=== PATIENT | male | born 1945 | race Caucasian/White ===

== ENCOUNTER → 2018-05-04 | Outpatient (REF) | payer MEDICARE, OTHER ==
[2018-05-04 13:33] LABS: GAMMA GLUTAMYLTRANSPEPTIDASE 139 U/L (15-85)
== END ==
LOC: M LAB REF 12:37
DX: R74.8 Abnormal levels of other serum enzymes (principal)
CPT/HCPCS: 82977

== ENCOUNTER → 2018-06-30 | Outpatient (REF) | payer MEDICARE, OTHER ==
[~2018-06-30] MED LIST: ACIP1TAB PO; ACTO45TA15 PO; ASPI81TA7 PO; CEFT500T PO; DIOV320T3 PO; FURO20TA2 PO; JANU100T PO; LIPI10TA PO; METO1TAB7 PO; OMEP20CA3 PO; PIOG1TAB37 PO; TOPR25TA PO; ULTR50TA PO; ZITH250T PO
[2018-07-06 11:15] LABS: HEPATITIS A ANTIBODY IGM NEGATIVE (NEGATIVE); HEPATITIS B CORE ANTIBODY IGM NEGATIVE (NEGATIVE); HEPATITIS B SURFACE ANTIGEN NEGATIVE (NEGATIVE); HEPATITIS C VIRUS ABY INDEX 0.1 INDEX (<0.8)
== END ==
LOC: M LAB REF 16:36
PROVIDERS: ATTEND Family Medicine
DX: R74.0 Nonspecific elevation of levels of transaminase and lactic acid dehydrogenase [LDH] (principal)

== ENCOUNTER → 2021-06-16 | Outpatient (CLI) | payer MEDICARE, OTHER ==
[~2021-06-16] MED LIST changes: +METO-1 PO; -TOPR25TA PO
== END ==
LOC: M WUC 12:59
PROVIDERS: ATTEND Family Medicine
DX: R06.2 Wheezing (principal)

== ENCOUNTER → 2021-11-12 | Outpatient (CLI) | payer MEDICARE, OTHER | LOC: M WHC 10:06 | PROVIDERS: ATTEND Family Medicine | DX: R60.0 Localized edema (principal); M71.21 Synovial cyst of popliteal space [Baker], right knee ==

== ENCOUNTER → 2022-07-08 | Outpatient (CLI) | payer MEDICARE, OTHER ==
[~2022-07-08] MED LIST changes: +ASPI81CH33 PO; +ATOR1TAB19 PO; +GLIP10TA18 PO; +INVO100T PO; +LOSA50TA28 PO; +TRUL0.5I SQ
== END ==
LOC: M LABSMTC 09:54
PROVIDERS: ATTEND Anesthesiology
DX: Z01.812 Encounter for preprocedural laboratory examination (principal); Z20.822 Contact with and (suspected) exposure to COVID-19

== ENCOUNTER 2022-07-13 11:23 | Day surgery (SDC) | payer MEDICARE, OTHER ==
[~2022-07-13] VITALS: Ht 170.2 cm; Wt 111.0 kg
[~2022-07-13 11:23] MED LIST changes: +NS 1,000 ML IV ONE
[2022-07-13] MEDS ORDERED: LIDOCAINE 2% 100MG/5ML SDV (FOR ANES.) As Ordered ONE (12:03)
[2022-07-13] MEDS ORDERED: propofoL 200 MG/20 ML VIAL As Ordered ONE (12:03)
[2022-07-13 13:45] VITALS: BP 164/76
== END 2022-07-13 13:52 | disposition home or self-care (01) ==
LOC: M OPP 11:23
PROVIDERS: ATTEND Internal Medicine Gastroenterology
DX: Z12.11 Encounter for screening for malignant neoplasm of colon (principal); Z86.010 Personal history of colon polyps; Z80.0 Family history of malignant neoplasm of digestive organs; D12.6 Benign neoplasm of colon, unspecified; K64.0 First degree hemorrhoids; K57.30 Diverticulosis of large intestine without perforation or abscess without bleeding; Z79.02 Long term (current) use of antithrombotics/antiplatelets; Z79.82 Long term (current) use of aspirin; Z79.84 Long term (current) use of oral hypoglycemic drugs; Z79.899 Other long term (current) drug therapy; Z88.4 Allergy status to anesthetic agent; I10 Essential (primary) hypertension; E11.9 Type 2 diabetes mellitus without complications; Z87.891 Personal history of nicotine dependence

== ENCOUNTER 2023-03-31 11:32 | Emergency (ER) | payer MEDICARE, OTHER ==
[~2023-03-31] VITALS: Ht 170.2 cm; Wt 109.8 kg
[~2023-03-31 11:32] MED LIST changes: -ELIQ5TAB4 PO
[2023-03-31] MEDS ORDERED: ELIQ5TAB4 PO (15:42)
[2023-03-31 15:55] VITALS: BP 164/81; TEMP 97.3; O2SAT 97
== END 2023-03-31 15:57 | disposition home or self-care (01) ==
LOC: M ED 11:32
DX: I82.441 Acute embolism and thrombosis of right tibial vein (principal); I44.0 Atrioventricular block, first degree; E11.9 Type 2 diabetes mellitus without complications; I10 Essential (primary) hypertension; K21.9 Gastro-esophageal reflux disease without esophagitis; M54.50 Low back pain, unspecified; K57.92 Diverticulitis of intestine, part unspecified, without perforation or abscess without bleeding; Z88.4 Allergy status to anesthetic agent; Z79.01 Long term (current) use of anticoagulants; Z79.82 Long term (current) use of aspirin; Z79.02 Long term (current) use of antithrombotics/antiplatelets; Z79.811 Long term (current) use of aromatase inhibitors; Z79.899 Other long term (current) drug therapy

== ENCOUNTER → 2023-03-31 | Outpatient (CLI) | payer MEDICARE, OTHER ==
[~2023-03-31] MED LIST changes: +ELIQ5TAB4 PO; -NS 1,000 ML IV ONE
== END ==
LOC: M WHC 08:36
PROVIDERS: ATTEND Physician Assistant
DX: R22.41 Localized swelling, mass and lump, right lower limb (principal)

== ENCOUNTER → 2023-06-24 | Outpatient (REF) | payer MEDICARE, OTHER ==
[~2023-06-24] MED LIST changes: +ELIQ5TAB4 PO
[2023-07-01 15:08] LABS: ANTI THROMBIN 3 FUNCT ACTIVITY 117 % (75-135); CARDIOLIPIN IGA ANTIBODY <9 APL U/mL (0-11); CARDIOLIPIN IGG ANTIBODY <9 GPL U/mL (0-14); CARDIOLIPIN IGM ANTIBODY 24 MPL U/mL (0-12); HOMOCYST(E)INE SERUM 19.6 umol/L (0.0-19.2); PROTEIN C FUNCTIONAL ACTIVITY 104 % (73-180); PROTEIN S FUNCTIONAL ACTIVITY 88 % (63-140)
[2023-07-02 11:03] LABS: DRVV SCREEN 74.8 SECONDS
[2023-07-02 11:24] LABS: PTT LUPUS TYPE ANTICOAG SCREEN 1.89 (0-1.20)
[2023-07-02 11:34] LABS: DRVV CONFIRM 59.8 SECONDS; LUPUS CONFIRM RATIO 1.6
[2023-07-02 11:43] LABS: NORMALIZED RATIO 1.18 (0.00-1.20)
== END ==
LOC: M LAB REF 12:24
PROVIDERS: ATTEND Family Medicine
DX: I82.403 Acute embolism and thrombosis of unspecified deep veins of lower extremity, bilateral (principal)

== ENCOUNTER → 2023-07-05 | Outpatient (CLI) | payer MEDICARE, OTHER | LOC: M CARPUL 09:12 | PROVIDERS: ATTEND Family Medicine | DX: R60.0 Localized edema (principal); I08.1 Rheumatic disorders of both mitral and tricuspid valves ==

== ENCOUNTER 2023-09-23 08:19 | Outpatient (RCR) | payer MEDICARE, OTHER | END 2023-09-26 | LOC: M PT 08:19 | PROVIDERS: ATTEND Nurse Practitioner Family | DX: R60.0 Localized edema (principal) ==

== ENCOUNTER 2023-10-01 08:17 | Outpatient (RCR) | payer MEDICARE, OTHER | END 2023-10-26 | LOC: M PT 08:17 | PROVIDERS: ATTEND Nurse Practitioner Family | DX: I89.0 Lymphedema, not elsewhere classified (principal) ==

== ENCOUNTER → 2023-12-21 | Outpatient (CLI) | payer MEDICARE, OTHER | LOC: M RAD 07:28 | PROVIDERS: ATTEND Family Medicine | DX: R74.01 Elevation of levels of liver transaminase levels (principal); K76.0 Fatty (change of) liver, not elsewhere classified; R93.2 Abnormal findings on diagnostic imaging of liver and biliary tract; R93.3 Abnormal findings on diagnostic imaging of other parts of digestive tract ==

== ENCOUNTER 2024-02-16 14:41 | Emergency (ER) | payer MEDICARE, OTHER ==
[~2024-02-16] VITALS: Ht 170.2 cm; Wt 113.4 kg
[~2024-02-16 14:41] MED LIST changes: -ACIP1TAB PO; +RABE20TA88 PO
[2024-02-16 15:31] LABS: BASO % 0.4 % (0.0-1.0); EOS # 0.2 10^3/uL (0.0-0.5); EOS % 1.5 % (0.0-3.0); HEMOGLOBIN 14.4 g/dl (13.5-17.5); LYMPH # 3.9 10^3/uL (1.5-5.0); LYMPH % 37.5 % (24.0-44.0); MEAN CORPUSCULAR HEMOGLOBIN 30.9 pg (27.0-33.0); MEAN CORPUSCULAR HGB CONC 33.5 g/dl (32.0-36.5); MEAN CORPUSCULAR VOLUME 92.3 fl (80.0-96.0); MONO # 0.8 10^3/uL (0.0-0.8); NEUTROPHILS # 5.4 10^3/uL (1.5-8.5); NEUTROPHILS % 52.3 % (36.0-66.0); PLATELET COUNT, AUTOMATED 170 10^3/uL (150-450); RED BLOOD COUNT 4.66 10^6/uL (4.30-6.10); WHITE BLOOD COUNT 10.3 10^3/uL (4.0-10.0)
[2024-02-16 15:32] LABS: INR 1.41; PARTIAL THROMBOPLASTIN TIME 38.4 SECONDS (24.8-34.2); PROTHROMBIN TIME 16.8 SECONDS (12.5-14.5)
[2024-02-16 15:38] LABS: CALCIUM LEVEL 9.4 MG/DL (8.3-10.6); CREATININE FOR GFR 1.89 MG/DL (0.70-1.30); GLOMERULAR FILTRATION RATE 36.8 (>42); MAGNESIUM LEVEL 2.4 MG/DL (1.8-2.4); POTASSIUM SERUM 4.6 MMOL/L (3.5-5.1)
[2024-02-16 15:40] LABS: THYROID STIMULATING HORMONE 2.883 uIU/ML (0.55-4.78)
[2024-02-16 16:09] VITALS: BP 128/57; TEMP 97.3
[2024-02-16 16:11] VITALS: O2SAT 96
== END 2024-02-16 16:15 | disposition left against medical advice (07) ==
LOC: M ED 14:41
DX: I49.2 Junctional premature depolarization (principal); E11.9 Type 2 diabetes mellitus without complications; I10 Essential (primary) hypertension; K21.9 Gastro-esophageal reflux disease without esophagitis; N18.9 Chronic kidney disease, unspecified; Z86.718 Personal history of other venous thrombosis and embolism; Z88.8 Allergy status to other drugs, medicaments and biological substances; Z79.01 Long term (current) use of anticoagulants; Z79.82 Long term (current) use of aspirin; Z79.899 Other long term (current) drug therapy; Z53.9 Procedure and treatment not carried out, unspecified reason

== ENCOUNTER 2024-04-05 10:27 | Outpatient (RCR) | payer MEDICARE, OTHER | END 2024-04-27 | LOC: M PT 10:27 | PROVIDERS: ATTEND Nurse Practitioner Family | DX: I89.0 Lymphedema, not elsewhere classified (principal) ==

== ENCOUNTER → 2024-04-24 | Outpatient (CLI) | payer MEDICARE, OTHER ==
[~2024-04-24] MED LIST changes: +ISOVUE-370 76% 100ML VIAL As Ordered ONE
== END ==
LOC: M RAD 08:13
PROVIDERS: ATTEND Family Medicine
DX: R74.01 Elevation of levels of liver transaminase levels (principal)
CPT/HCPCS: 74177; Q9967

== ENCOUNTER 2024-06-14 08:22 | Outpatient (RCR) | payer MEDICARE, OTHER ==
[~2024-06-14 08:22] MED LIST changes: -ISOVUE-370 76% 100ML VIAL As Ordered ONE
== END 2024-06-27 ==
LOC: M PT 08:22
PROVIDERS: ATTEND Nurse Practitioner Family
DX: I89.0 Lymphedema, not elsewhere classified (principal)

== ENCOUNTER 2024-08-07 16:38 | Emergency (ER) | payer MEDICARE, OTHER ==
[~2024-08-07] VITALS: Ht 170.2 cm; Wt 111.6 kg
[2024-08-07 16:44] VITALS: TEMP 97.3
[2024-08-07] MEDS: LIDOCAINE 5% (LIDODERM) PATCH TD ONE (20:05)
[2024-08-07] MEDS: KETOROLAC 30 MG/ML 1ML VIAL IM ONE (20:28)
[2024-08-07] MEDS ORDERED: PRED20TA PO (21:23)
[2024-08-07] MEDS ORDERED: METH-1164 PO (21:23)
[2024-08-07 21:38] VITALS: BP 190/80; O2SAT 98
== END 2024-08-07 21:46 | disposition home or self-care (01) ==
LOC: M ED 16:38
DX: M54.16 Radiculopathy, lumbar region (principal); E11.9 Type 2 diabetes mellitus without complications; I10 Essential (primary) hypertension; K21.9 Gastro-esophageal reflux disease without esophagitis; K57.30 Diverticulosis of large intestine without perforation or abscess without bleeding; Z88.0 Allergy status to penicillin; Z79.01 Long term (current) use of anticoagulants; Z79.82 Long term (current) use of aspirin; Z79.02 Long term (current) use of antithrombotics/antiplatelets; Z79.899 Other long term (current) drug therapy
CPT/HCPCS: 73502; 80047; 96372; 99283; J1100; J1885

== ENCOUNTER → 2024-08-11 | Outpatient (CLI) | payer MEDICARE, OTHER ==
[~2024-08-11] MED LIST changes: +METH-1164 PO; +PRED20TA PO; +PROHANCE 279.3MG/ML 15ML VIAL ONE; +PROHANCE 279.3MG/ML 5ML VIAL ONE
== END ==
LOC: M PLAIMG 12:28
PROVIDERS: ATTEND Family Medicine
DX: D37.6 Neoplasm of uncertain behavior of liver, gallbladder and bile ducts (principal); N28.1 Cyst of kidney, acquired
CPT/HCPCS: 74183; A9576

== ENCOUNTER → 2024-08-21 | Outpatient (REF) | payer MEDICARE, OTHER ==
[~2024-08-21] MED LIST changes: -PROHANCE 279.3MG/ML 15ML VIAL ONE; -PROHANCE 279.3MG/ML 5ML VIAL ONE
== END ==
LOC: M LAB REF 12:08
PROVIDERS: ATTEND Family Medicine
DX: N18.30 Chronic kidney disease, stage 3 unspecified (principal)

== ENCOUNTER → 2025-01-26 | Outpatient (CLI) | payer MEDICARE, OTHER ==
[~2025-01-26] MED LIST changes: +GADOXETATE DISODIUM 2.5 MMOL/10 ML VIAL ONE; +GLIP-320 PO; -GLIP10TA18 PO
== END ==
LOC: M PLAIMG 10:41
PROVIDERS: ATTEND Family Medicine
DX: R93.2 Abnormal findings on diagnostic imaging of liver and biliary tract (principal); K76.0 Fatty (change of) liver, not elsewhere classified; N28.1 Cyst of kidney, acquired; K76.89 Other specified diseases of liver
CPT/HCPCS: 74183; A9581